=== PATIENT | male | born 1985 | race African-American/Black ===

== ENCOUNTER → 2018-06-18 | Day surgery (SDC) | payer OTHER | END | disposition home or self-care (01) | LOC: JRADIR 09:40 | PROVIDERS: ATTEND Orthopaedic Surgery Sports Medicine | PROC: BQ00YZZ Plain Radiography of Right Hip using Other Contrast (ICD-10-PCS; principal; 2018-06-18) | PROC: 3E0U33Z Introduction of Anti-inflammatory into Joints, Percutaneous Approach (ICD-10-PCS; 2018-06-18) | PROC: 3E0U3BZ Introduction of Anesthetic Agent into Joints, Percutaneous Approach (ICD-10-PCS; 2018-06-18) | DX: M25.551 Pain in right hip (principal) | CPT/HCPCS: 73525; G0260; 27093; 76000-TC-FY ==

== ENCOUNTER 2018-08-07 06:29 | Day surgery (SDC) | payer OTHER ==
[2018-07-31 17:50] VITALS: BMI 23.3
--- NOTE | 2018-08-07 07:43 | OP ---
Operative Note - Note: Operative Date: 08/07/18 Pre-Operative Diagnosis: Right hip impingement Operation: Right hip arthroscopy Implants: [employer] Q-fix x3 Post-Operative Diagnosis: Same as Pre-op Surgeon: Joaquim Grayson Drag Sawyer: Aurora Gerber Anesthesiologist/MANAGER MEDICAL AFFAIRS: Camille White Anesthesia: General Operative Report Dictated: Yes
[2018-08-07] MEDS ORDERED: EPINEPHrine 1:1,000 1 MG/1 ML - 30ML VIAL (INJECTION) ONE (07:48)
[2018-08-07] MEDS ORDERED: BUPIVACAINE HCL/PF 2.5 MG/ML - 30 ML VIAL IJ ONE (07:48)
[2018-08-07] MEDS ORDERED: MIDAZOLAM HCL 2 MG/2 ML SINGLE DOSE VIAL ONE ×3 (09:21→14:04)
[2018-08-07] MEDS ORDERED: DEXAMETHASONE SOD PHOSPHATE/PF 10 MG/ML SDV ONE (09:22)
[2018-08-07] MEDS ORDERED: LIDOCAINE 1% P/F 10 MG/ML VIAL ONE (09:23)
[2018-08-07] MEDS ORDERED: BUPIVACAINE HCL/PF (5 MG/ML) 30 ML VIAL IJ ONE (09:23)
[2018-08-07] MEDS ORDERED: PROPOFOL 20 ML ONE ×4 (09:25→12:54)
[2018-08-07] MEDS ORDERED: KETAMINE HCL 200 MG/20 ML VIAL ONE (09:57)
[2018-08-07] MEDS ORDERED: LACTATED RINGERS SOLUTION 1,000 ML IV SCH (11:00)
[2018-08-07] MEDS ORDERED: ONDANSETRON 4 MG/2 ML VIAL IVPUSH PRN (11:00)
[2018-08-07] MEDS ORDERED: ceFAZolin SODIUM 1 GM VIAL IVPB ONE (15:30)
[2018-08-07] MEDS ORDERED: ceFAZolin SODIUM 1 GM VIAL ONE (15:39)
--- NOTE | 2018-08-07 15:39 | OP ---
DATE OF OPERATION: 08/07/2018 PREOPERATIVE DIAGNOSIS: Right hip impingement, labral tear. POSTOPERATIVE DIAGNOSIS: Right hip impingement, labral tear. PROCEDURE: Right hip arthroscopy with labral repair, femoroplasty. SURGEON: Frederick Lopez MD CREDIT ADMINISTRATION SPECIALIST: BRADFORD Saez, whose skillful assistance was necessary for the safe and timely performance of this procedure. Ms. Gerber was able to help provide limb positioning, retraction, driving the camera, assist in suture passage as well as insertion of orthopedic fixation hardware. ANESTHESIA: Spinal. POSTOPERATIVE CONDITION: Stable. COMPLICATIONS: None. IMPLANTS: [employer] Q-Fix x3. INDICATIONS: This is a pleasant 32-year-old gentleman who had been suffering from years of right hip pain. It failed to improve with physical therapy and only had limited relief with injection. Treatment options including continued nonoperative versus operative care were reviewed. Operative risks were reviewed in detail, including bleeding, infection, neurovascular injury, need for further surgery, postoperative pain and stiffness, recurrence of labral tear, abdominal compartment syndrome, paresthesias related to traction in both the groin area and the lower extremity. We reviewed medical risks such as heart attack, stroke, DVT, PE, and . I discussed postoperative rehabilitation protocol and the lengthy recovery and need for physical therapy. I addressed all the patient's questions and concerns. He voiced understanding and elected to proceed. PROCEDURE: The patient was brought to the operating room. After administration of spinal anesthetic, he was placed onto the hip distractor table. Both feet were well padded, wrapped in padded boots, and then wrapped in Coban to protect the feet during the traction portion of the procedure. Care was taken to avoid no aspects of the genitals were caught between the post and the patient. A slight amount of Trendelenburg was required to minimize the amount of pressure on the perineal post. Prior to prepping and draping the patient, fluoroscopy was used to confirm that adequate distraction of the hip joint was possible. The patient was then prepped and draped in the usual sterile fashion. A preoperative dose of antibiotics was given and the usual timeout procedure was performed. Patient was now placed back into traction. Fluoroscopy was used to confirm adequate distraction. In line with the roof of the acetabulum, a spinal needle was placed in line with the anterior aspect of the femur into the joint. Care was taken to avoid penetrating close to the rim of the acetabulum to avoid penetrating the labrum, and the needle passed easily through the capsule. Fluoroscopy was used to confirm satisfactory placement. A guidewire was then placed into the acetabulum. The spinal needle was withdrawn. An incision was made about the guidewire. A dilator was then passed in, meeting only slight resistance going through the capsule and then entering easily into the joint. The cannula was then placed utilizing the trocar. The camera was now placed into the joint. Given that there was a small amount of blood in the joint, which was limiting visualization, the joint was now filled with fluid. After getting adequate visualization of the anterior capsule between the V shape of the femur and acetabulum, a 2nd spinal needle was now passed into this region and placement was confirmed visually with the arthroscope. This was then dilated and the cannula was inserted here as well. Utilizing a red devil blade as well as electrocautery, capsulotomy was made, connecting the 2 arthrotomies. The camera was flipped back and forth between the holes to ensure adequate tissue resection. Now with better visualization, the joint was inspected. Inspecting the acetabulum demonstrated no articular lesions. Inspecting the femoral head demonstrated no articular lesions. The ligamentum was visualized intact. The labrum was seen to have a thickened and erythematous appearance. There was some fraying noted anterosuperiorly. Probe was now passed and the tear was examined and this demonstrated a tear approximately 2 cm long involving most of the thickness although not all of the thickness of the labrum. Utilizing electrocautery as well as a shaver, the soft tissue just adjacent to the labrum was debrided. An elevator was now used to complete the tear with minimal effort, indicating that only a small amount of tissue was left attached. A rasp as well as a shaver were used to prepare the bony bed. No significant pincer was present; no bony resection was performed on the acetabulum. An accessory portal was now established anterior superior utilizing a marian and spread technique to avoid any injury to the superficial lateral femoral cutaneous nerve. Three anchors were now drilled utilizing a curved drill guide, which was away from the acetabulum. All 3 drill holes were verified to be extraarticular by placing the camera inside the joint. Three of the anchors were inserted. The sutures were now manually passed and then tied sequentially from inferior to superior, securing the labrum back down. Attention was now turned to the other compartment. The traction was let off. The labrum was seen to sit nicely and form a seal along the femoral head. A T split was now made in the capsulotomy for better visualization of the femoral neck. Utilizing the longs, electrocautery was used to demarcate the area where the femoroplasty would be performed. This was guided utilizing visualization as well as fluoroscopy. A bur was used to create a more concave surface. The hip was placed in multiple positions to gain adequate visualization and ensure adequate decompression, including extended internal and external rotation as well as flexed internal and external rotation. After satisfactory decompression had been performed, this was examined and no further prominence was noted. Attention was now turned to the capsule. Here, utilizing multiple suture passers, the capsule was repaired, covering 90% of the area of the arthrotomy, a small area just adjacent to the joint was too thin to be repaired. At this point, the camera was withdrawn. The portals were sutured using 3-0 nylon. Sterile dressings were placed. Patient was transferred to recovery room in stable condition. FREDERICK LOPEZ M.D. PAYAL/[id number]
[2018-08-07] MEDS: CEFAZOLIN 1 GM/D5W 1 GM/50 ML BAG IVPB SCH ×2 (17:16→20:21)
[2018-08-07] MEDS: oxyCODONE HCL 5 MG TABLET PO PRN ×3 (17:17→21:38)
[2018-08-08] MEDS: oxyCODONE HCL 5 MG TABLET PO PRN (00:24)
[2018-08-08 00:39] VITALS: TEMP 98
[2018-08-08] MEDS: CEFAZOLIN 1 GM/D5W 1 GM/50 ML BAG IVPB SCH ×2 (02:01→08:57)
[2018-08-08 06:42] VITALS: BP 135/70; PULSE 65
== END 2018-08-08 09:15 | disposition home or self-care (01) ==
LOC: FASU 06:29 → FASUSAT 06:29 → FM/S 09:37 → FASU 09:37 → FASUSAT 08-08 09:15
PROVIDERS: ATTEND Orthopaedic Surgery Sports Medicine
PROC: 0QB64ZZ Excision of Right Upper Femur, Percutaneous Endoscopic Approach (ICD-10-PCS; 2018-08-07)
PROC: 0SQ94ZZ Repair Right Hip Joint, Percutaneous Endoscopic Approach (ICD-10-PCS; principal; 2018-08-07 09:00)
DX: M25.851 Other specified joint disorders, right hip (principal); M24.151 Other articular cartilage disorders, right hip
CPT/HCPCS: 73502-TC-RT-FY; 94760

== ENCOUNTER 2020-01-08 04:30 | Day surgery (SDC) | payer OTHER ==
[2020-01-07 07:32] VITALS: BMI 20.7
[~2020-01-08 04:30] MED LIST: BUPIVACAINE HCL/PF 0.5% (5 MG/ML) 30 ML VIAL IJ ONE; IOHEXOL 180 MG/1 ML ML IJ ONE; LIDOCAINE HCL 1%, 10 MG/ML (20ML VIAL) INF ONE
[2020-01-08] MEDS ORDERED: BUPIVACAINE HCL/PF 0.25% (2.5MG/ML) 10 ML VIAL ONE (07:15)
[2020-01-08] MEDS ORDERED: BUPIVACAINE HCL 50 ML ONE (07:15)
[2020-01-08] MEDS ORDERED: LIDOCAINE HCL 1%, 10 MG/ML (20ML VIAL) ONE (07:15)
[2020-01-08 09:15] VITALS: PULSE 50
[2020-01-08] MEDS ORDERED: LIDOCAINE HCL 1%, 10 MG/ML (20ML VIAL) INF ONE (10:17)
[2020-01-08] MEDS ORDERED: BUPIVACAINE HCL/PF 0.5% (5 MG/ML) 30 ML VIAL IJ ONE (10:17)
[2020-01-08] MEDS ORDERED: IOHEXOL 180 MG/1 ML ML IJ ONE (10:17)
[2020-01-08] MEDS ORDERED: TRIAMCINOLONE ACET 40MG/1ML VIAL IM ONE (10:17)
[2020-01-08 10:44] VITALS: BP 143/86; TEMP 97.8
--- NOTE | 2020-01-11 22:16 | PROC ---
Procedure Note Procedure: Pre procedure Diagnosis: Sacroilliac Joint Dysfunction Post Procedure Diagnosis: same Anesthesia: local Procedure Performed: Right Sacroilliac Joint Injection Under Fluoroscopic Guidance After the risks and benefits were explained, informed consent was obtained. The patient was then taken to the procedure room and positioned prone on the procedure table. Time out was performed. The region overlying the right sacroiliac joint was identified using fluoroscopy. The skin was prepped and draped in the usual sterile fashion. The skin and soft tissues were anesthetized using 2% lidocaine. Using fluoroscopic guidance, a 22 gauge 3.5 inch spinal needle was then introduced to the inferior aspect of the posterior Right sacroiliac joint. Omnipaque 180 confirmed appropriate needle placement. 1 cc .5% bupivacaine and 1 cc Kenalog was then injected. The patient tolerated the procedure well and there were no complications. The patient was taken to the post procedure recovery area in good condition. Vital signs remained stable before, during, and after the procedure. The patient was given oral and written follow-up instructions. The patient was given a follow up appointment with me in the near future. Jesse Berger DO
== END 2020-01-08 10:55 | disposition home or self-care (01) ==
LOC: JASU-SURG 04:30
PROVIDERS: ATTEND Pain Medicine Pain Medicine
PROC: 3E0U3BZ Introduction of Anesthetic Agent into Joints, Percutaneous Approach (ICD-10-PCS; 2020-01-08)
PROC: 3E0U33Z Introduction of Anti-inflammatory into Joints, Percutaneous Approach (ICD-10-PCS; principal; 2020-01-08 10:30)
DX: M53.3 Sacrococcygeal disorders, not elsewhere classified (principal)
CPT/HCPCS: 76000-TC-FY

== ENCOUNTER 2020-07-15 04:27 | Day surgery (SDC) | payer OTHER ==
[2020-07-12 16:48] VITALS: BMI 22.1
[2020-07-15] MEDS ORDERED: LIDOCAINE HCL 1%, 10 MG/ML (20ML VIAL) SQ ONE (08:16)
[2020-07-15] MEDS ORDERED: BUPIVACAINE HCL/PF 0.75% 10 ML VIAL NR ONE (08:18)
[2020-07-15] MEDS ORDERED: IOHEXOL 180 MG/1 ML ML IJ ONE (08:20)
[2020-07-15 08:42] VITALS: BP 131/65; PULSE 58; TEMP 97.2
== END 2020-07-15 08:45 | disposition home or self-care (01) ==
LOC: JASU-SURG 04:27
PROVIDERS: ATTEND Pain Medicine Pain Medicine
PROC: BR15YZZ Fluoroscopy of Thoracic Facet Joint(s) using Other Contrast (ICD-10-PCS; 2020-07-15)
PROC: 3E0T3BZ Introduction of Anesthetic Agent into Peripheral Nerves and Plexi, Percutaneous Approach (ICD-10-PCS; principal; 2020-07-15 08:00)
DX: M47.816 Spondylosis without myelopathy or radiculopathy, lumbar region (principal)
CPT/HCPCS: 76000-TC-FY

== ENCOUNTER 2020-09-09 04:24 | Day surgery (SDC) | payer OTHER ==
[2020-09-09 12:52] VITALS: BMI 20.7
[2020-09-09] MEDS ORDERED: LIDOCAINE HCL/PF 1% SDV 5ML VIAL ONE (13:20)
[2020-09-09] MEDS ORDERED: IOHEXOL 180 MG/1 ML ML IJ ONE (13:39)
[2020-09-09] MEDS ORDERED: LIDOCAINE 1% P/F 10 MG/ML VIAL PNB ONE (13:40)
[2020-09-09] MEDS ORDERED: BUPIVACAINE HCL/PF 0.75% 10 ML VIAL PNB ONE (13:41)
[2020-09-09 14:26] VITALS: BP 118/78; PULSE 55; TEMP 98.7
== END 2020-09-09 13:05 | disposition home or self-care (01) ==
LOC: JASU-SURG 04:24
PROVIDERS: ATTEND Pain Medicine Pain Medicine
PROC: BR16YZZ Fluoroscopy of Lumbar Facet Joint(s) using Other Contrast (ICD-10-PCS; 2020-09-09)
PROC: 3E0T3BZ Introduction of Anesthetic Agent into Peripheral Nerves and Plexi, Percutaneous Approach (ICD-10-PCS; principal; 2020-09-09 13:30)
DX: M47.816 Spondylosis without myelopathy or radiculopathy, lumbar region (principal)
CPT/HCPCS: 76000-TC-FY

== ENCOUNTER 2022-09-12 19:34 | Emergency (ER) | payer OTHER ==
[2022-09-12 19:38] VITALS: BP 138/92; PULSE 55; RESP 18; TEMP 97.5; BMI 22.1
[2022-09-12] MEDS ORDERED: METOCLOPRAMIDE HCL INJECTION 10 MG/2 ML VIAL ONE (20:16)
[2022-09-12] MEDS ORDERED: SODIUM CHLORIDE 0.9% 500 ML INFUS.BAG IV ONE (20:20)
[2022-09-12 20:51] LABS: BASO % 0.6 % (0-2.0); EOS % 2.6 % (0-4.5); HEMATOCRIT 40.7 % (35.4-49); HEMOGLOBIN 13.8 GM/dL (11.7-16.9); LYMPH % 39.2 % (8-40); MCH 29.6 pg (25.7-33.7); MEAN PLT VOLUME 7.5 fl (7.5-11.1); NEUT % 46.6 % (42.8-82.8); PLATELET COUNT 314 10^3/uL (134-434); RBC 4.67 M/mm3 (4.00-5.60); RDW 14.5 % (11.9-15.9); WHITE BLOOD COUNT 7.3 K/mm3 (4.0-10.0)
[2022-09-12 21:10] LABS: BLOOD UREA NITROGEN 17.6 mg/dL (7-18); CALCIUM 9.7 mg/dL (8.5-10.1)
[2022-09-12 21:12] LABS: ALBUMIN 4.1 g/dl (3.4-5.0)
[2022-09-12 21:13] LABS: CREATININE 1.3 mg/dL (0.55-1.3)
[2022-09-12 21:15] LABS: BILIRUBIN,TOTAL 0.4 mg/dL (0.2-1); TOT PROT 7.6 g/dl (6.4-8.2)
== END 2022-09-12 21:54 | disposition home or self-care (01) ==
LOC: JER 19:34
DX: R11.2 Nausea with vomiting, unspecified (principal)
CPT/HCPCS: 36415; 80053; 85025; 99284-25

== ENCOUNTER 2024-02-07 08:25 | Emergency (ER) | payer OTHER ==
[2024-02-07 09:01] VITALS: BP 145/85; PULSE 79; RESP 18; TEMP 98.1; BMI 22.8
[2024-02-07] MEDS ORDERED: DIPHTH,PERTUSS(ACELL),TET 0.5 ML DISP.SYRIN IM ONE (09:27)
[2024-02-07] MEDS: DIPHTH,PERTUSS(ACELL),TET 0.5 ML DISP.SYRIN IM ONE (09:34)
== END 2024-02-07 11:52 | disposition home or self-care (01) ==
LOC: JERFT 08:25
PROC: 3E0234Z Introduction of Serum, Toxoid and Vaccine into Muscle, Percutaneous Approach (ICD-10-PCS; principal; 2024-02-07)
DX: S00.01XA Abrasion of scalp, initial encounter (principal); W22.8XXA Striking against or struck by other objects, initial encounter; Y04.2XXA Assault by strike against or bumped into by another person, initial encounter; Y93.43 Activity, gymnastics; Z23 Encounter for immunization
CPT/HCPCS: 70450-TC; 90471; 90715; 99284-25